=== PATIENT | female | born 1995 | race African-American/Black ===

== ENCOUNTER 2017-03-03 14:32 | Emergency (ER) | payer OTHER ==
[~2017-03-03] VITALS: Ht 162.6 cm; Wt 93.4 kg
[~2017-03-03 14:32] MED LIST: AMOXIL500 MG PO; BACTRIM DS 8001 TAB PO; CIPRO 500MG TA500 MG PO; CITRANATAL HAR1 EACH PO; DICLEGIS DR 101 EACH PO; FIORICET 325 MG1 TAB PO; FLEXERIL10 MG PO; GLYBURIDE5 M1 PO; GOOD SENSE IBU200 MG PO; HUMALOG100 UNIT/2 SC; HYDROCODONE/ACE1 TA1 PO; IBUPROFEN600 M1 PO; KEFLEX500 M1 PO; KEFLEX500 MG PO; LEVEMIR100 UNIT/1 SC; LEVSIN0.125 MG PO; LIDEX0.05 %/15 TOP; METFORMIN HCL500 MG PO; NEURONTIN300 M1 PO; PERCOCET 5-3251 EACH PO; ROBITUSSIN W/CO10 ML PO; TYLENOL TAB 32325 MG PO; VITAMIN B COMPL1 CAP PO; ZITHROMAX Z-PA250 M1 PO; ZOFRAN 4 MG TABL4 MG PO; ZOFRAN4 MG PO
[2017-03-03 14:36] VITALS: BP 124/84
--- NOTE | 2017-03-03 14:42 | ED UPPER/LOWER EXTREMITY COMPL ---
History of Present Illness General Chief Complaint: Lower Extremity Problems Stated Complaint: L FOOT SWELLING Source: patient Exam Limitations: no limitations Vital Signs & Intake/Output Vital Signs & Intake/Output Vital Signs Date Time Temp Pulse Resp B/P B/P Pulse O2 O2 Flow FiO2 Mean Ox Delivery Rate 03/03 1511 97 Room Air Room Air 03/03 1436 98.4 96 16 124/84 98 Room Air Room Air Allergies Coded Allergies: NO KNOWN ALLERGIES (05/03/16) Reconcile Medications Doxylamine/Pyridoxine HCl (Diclegis Dr 10-10 MG Tablet) 10 MG-10 MG TABLET.DR 2 TAB PO QPM PRN NAUSEA Insulin Detemir (Levemir) 100 UNIT/ML VIAL 24 UNITS SC QPM DM (Reported) Insulin Lispro (Humalog) 100 UNIT/ML VIAL 4 UNITS SC TID DM (Reported) Pnv59/Iron,Carb&Fum/FA/Dss/Dha (Citranatal [place] Capsule) 27 MG IRON-1 MG-50 MG-260 MG CAPSULE 1 CAP PO DAILY (Reported) Triage Note: PT TO TRIAGE WITH PAIN AND SWELLING TO FOOT AND ANKLE IN LEFT LEG SINCE YESTERDAY. NO REDNESS NOTED. Triage Nurses Notes Reviewed? yes Onset: Abrupt Duration: day(s): (2), constant, continues in ED Timing: recent history Severity: moderate, severe Pain/Injury Location: Left: Foot. Method of Injury: unknown No Modifying Factors: none : Yes Patient currently breastfeeds: No HPI: 21-year-old female comes into the emergency room for further evaluation of left foot pain and swelling has been going on for the past couple days. Patient is 36 weeks . Patient has a history of type 2 diabetes. Denies any vaginal bleeding leakage of fluid abdominal pain. Denies any trauma. Denies any other associated symptoms. (ANGELLA GRANT) Past History Travel History Traveled to [place] past 21 day No Medical History Any Pertinent Medical History? 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 No (ANGELLA GRANT) Review of Systems Review of Systems Constitutional: Reports: no symptoms. EENTM: Reports: no symptoms. Respiratory: Reports: no symptoms. Cardiovascular: Reports: no symptoms. Gastrointestinal/Abdominal: Reports: no symptoms. Genitourinary: Reports: no symptoms. Musculoskeletal: Reports: see HPI. Skin: Reports: no symptoms. Neurological/Psychological: Reports: no symptoms. Hematologic/Endocrine: Reports: no symptoms. Immunological: Reports: no symptoms. All Other Systems: Reviewed and Negative (ANGELLA GRANT) Physical Exam Physical Exam General Appearance: well developed/nourished Head: atraumatic Eyes: Bilateral: normal appearance. Ears, Nose, Throat: normal ENT inspection, hearing grossly normal Neck: normal inspection Cardiovascular/Respiratory: no respiratory distress Peripheral Pulses: 2+ dorsalis pedis (R), 2+ dorsalis pedis (L) Gastrointestinal: soft, nontender Back: normal inspection Foot Left: swelling, no edema Foot Right: swelling, nor edema Lower Extremity Reflexes: 1+: knee (R), knee (L), ankle (R), ankle (L). Neurologic/Tendon: normal sensation, normal motor functions, normal tendon functions, responds to pain, no evidence tendon injury, no pulse deficit Skin: intact, normal color, warm/dry Lymphatic: no anterior cervical alison (ANGELLA GRANT) Progress Differential Diagnosis: arterial insufficiency, cellulitis, contusion, dislocation, DVT, fracture, gout, septic arthritis, sprain, tendon injury Plan of Care: Orders Procedure Date/time Status Add-on Test (ER Only) 03/03 1814 Active URINE TOTAL PROT/CREAT RATIO 03/03 1620 Complete Add-on Test (ER Only) 03/03 1601 Active DIRECT BILIRUBIN 03/03 1510 Complete URINALYSIS 03/03 1446 Complete COMPREHENSIVE METABOLIC PANEL 03/03 1446 Complete CBC WITHOUT DIFFERENTIAL 03/03 1446 Complete Laboratory Tests 03/03/17 1615: Ur Random Creatinine 77.0, U Random Total Protein 15 H, Protein/Creatinin Ratio 0.1 03/03/17 1615: Urinalysis LIGHT H, Urine Color YEL, Urine Clarity HAZY H, Urine pH 6.0, Ur Specific [place] 1.015, Urine Protein NEG, Urine Ketones TRACE H, Urine Nitrite NEG, Urine Bilirubin SMALL H, Urine Urobilinogen 4.0 H, Ur Leukocyte Esterase TRACE H, Ur Microscopic SEDIMENT EXAMINED, Urine RBC 5-10 H, Ur Epithelial Cells FEW, Urine Bacteria MOD H, Urine Mucus FEW, Urine Hemoglobin NEG, Urine Glucose 250 H 03/03/17 1510: Anion Gap 10, Estimated GFR > 60, BUN/Creatinine Ratio 10.0, Glucose 101 H, Calcium 9.0, Total Bilirubin 3.1 H, Direct Bilirubin 0.9 H, AST 25, ALT 59 H, Alkaline Phosphatase 246 H, Total Protein 6.2 L, Albumin 3.1 L, Globulin 3.1, Albumin/Globulin Ratio 1.0 L, CBC w Diff NO MAN DIFF REQ, RBC 4.32, MCV 77.2 L , MCH 25.5 L, RDW 19.9 H, MPV 11.5 H, Gran % 63.6, Lymphocytes % 25.8, Monocytes % 9.2, Eosinophils % 1.0, Basophils % 0.4, Absolute Granulocytes 4.9, Absolute Lymphocytes 2.0, Absolute Monocytes 0.7 H, Absolute Eosinophils 0.1, Absolute Basophils 0, PUBS MCHC 33.0 Diagnostic Imaging: Viewed by Me: Ultrasound. Discussed w/RAD: Ultrasound. Radiology Impression: SERVICE DATE: 03/03/17 EXAM TYPE: US - US-EXT BILAT VENOUS DOPPLER EXAMINATION: US TRIPLEX OF LOWER EXTREMITIES, BILATERAL CLINICAL INFORMATION: Bilateral lower extremity edema, swelling. COMPARISON: None TECHNIQUE: Color-flow triplex imaging with spectral analysis and compression Doppler were performed on the lower extremities. FINDINGS: Respiratory variation , normal compression and augmented flow are noted throughout the lower extremities. The visualized common femoral vein, superficial femoral vein, profunda femoral vein, popliteal vein and midcalf peroneal and posterior tibial venous segments show no evidence of deep venous thrombosis. There is no Clemens's cyst. IMPRESSION: No evidence of deep venous thrombosis at both lower extremities. DICTATED BY: BERTHA PUENTE MD DATE/TIME DICTATED:03/03/171618 PHOTOGRAPHIC PLATE MAKER:NORAH , EXAM TYPE: US - US-LIMITED ABDOMEN EXAMINATION: US ABDOMEN LIMITED CLINICAL INFORMATION: 36 weeks with elevated bilirubin. COMPARISON: CT of the abdomen and pelvis done on 05/31/2016. TECHNIQUE: Real- time imaging of the right upper quadrant abdominal viscera. This study was done portably and is slightly limited since patient was on heart monitor. FINDINGS: PANCREAS: Nonvisualized due to overlying bowel gas, accordingly not evaluated. LIVER: Mild diffuse heterogeneous abnormal increased echotexture is noted, consistent with mild diffuse liver disease, likely fatty infiltration, without any sonographic detectable superimposed discrete focal abnormality. There is no intrahepatic biliary ductal dilatation present. GALLBLADDER: Gallbladder fold is noted. The gallbladder is physiologically distended without evidence of stones, sludge, polyps, wall thickening or pericholecystic fluid. COMMON BILE DUCT: Normal in caliber measuring 0.4 cm in diameter. RIGHT KIDNEY: Mild fullness of the right renal collecting system is present possibly physiologic given the patient's 36 weeks . No hydronephrosis. No renal calculi or focal parenchymal lesions. The kidney measures 10.9 cm in maximum dimension. FREE FLUID: None. IMPRESSION: 1. No sonographic evidence of any cholelithiasis, acute cholecystitis or biliary obstruction present. 2. Nonspecific mild diffuse heterogeneous abnormal echotexture is noted within the liver, consistent with mild diffuse liver disease, may represent diffuse fatty infiltration. 3. Nonvisualized pancreas. DICTATED BY: BERTHA PUENTE MD DATE/ TIME DICTATED:03/03/171735 (ANGELLA GRANT) Departure Departure Disposition: HOME OR SELF CARE Condition: Stable Clinical Impression Primary Impression: Foot swelling Secondary Impressions: Abdominal pain, Elevated LFTs Referrals: NANCIE DHALIWAL MD (PCP/Family) Additional Instructions: Patient was sent directly over to childbirth center for further evaluation. Departure Forms: Customer Survey General Discharge Information Comments Spoke with Dr. mars is covering for Dr. Atkinson. The plan is we're going to get an ultrasound the gallbladder. Patient is going to stay over at childbirth currently and stay on the monitor for IV hydration. He is not overly concerned other than the slight elevated bilirubin. Plan is for me to call him after the results of the ultrasound come back. 03/03/2017 6:13:51 PM Spoke with [employer] [employer] doctor again. They are going to go over ultrasound reports with patient. She is reporting relief feeling significantly better after IV hydration. She is likely going to be discharged from childbirth center with close follow-up with [facility] [facility] doctor. Patient will need her bilirubin to be reevaluated. This information is going to be communicated to the patient by childbirth center. Case was discussed with Dr. Noriega. [facility] doctor assures me that they will follow up with lab results with patient as well as ultrasounds. (KATIUSKA HARLEY,ANGELLA) PA/AIRCRAFT SALES REPRESENTATIVE Co-Sign Statement Statement: ED Attending supervision documentation- [] I saw and evaluated the patient. I have also reviewed all the pertinent lab results and diagnostic results. I agree with the findings and the plan of care as documented in the PA's/AIRCRAFT SALES REPRESENTATIVE's documentation. [X] I have reviewed the ED Record and agree with the PA's/AIRCRAFT SALES REPRESENTATIVE's documentation. [] Additions or exceptions (if any) to the PAs/AIRCRAFT SALES REPRESENTATIVE's note and plan are summarized below: [] (NAOMY BLANCO,TANNER Peralta)
[2017-03-03 15:44] LABS: ABSOLUTE BASOPHIL COUNT 0 /CUMM (0.0-0.2); ABSOLUTE EOSINOPHIL COUNT 0.1 /CUMM (0.0-0.7); ABSOLUTE GRANULOCYTE CT 4.9 /CUMM (1.4-6.5); ABSOLUTE MONOCYTE COUNT 0.7 /CUMM (0.10-0.60); BASOPHIL % 0.4 % (0.0-2.0); GRANULOCYTE % 63.6 % (42.2-75.2); HEMATOCRIT 33.3 % (37-47); MEAN CORPUSCULAR HGB 25.5 PG (27.0-31.0); MEAN CORPUSCULAR VOLUME 77.2 FL (81.0-99.0); MEAN PLATELET VOLUME 11.5 FL (7.4-10.4); PLATELET COUNT 258 /CUMM (130-400); RBC DISTRIBUTION WIDTH 19.9 % (11.5-14.5); RED BLOOD CELL CT 4.32 /CUMM (4.20-5.40); WHITE BLOOD CELL COUNT 7.8 /CUMM (4.8-10.8)
--- NOTE | 2017-03-03 16:24 | ULTRASOUND REPORT ---
EXAMINATION: US TRIPLEX OF LOWER EXTREMITIES, BILATERAL CLINICAL INFORMATION: Bilateral lower extremity edema, swelling. COMPARISON: None TECHNIQUE: Color-flow triplex imaging with spectral analysis and compression Doppler were performed on the lower extremities. FINDINGS: Respiratory variation, normal compression and augmented flow are noted throughout the lower extremities. The visualized common femoral vein, superficial femoral vein, profunda femoral vein, popliteal vein and midcalf peroneal and posterior tibial venous segments show no evidence of deep venous thrombosis. There is no Clemens's cyst. IMPRESSION: No evidence of deep venous thrombosis at both lower extremities.
--- NOTE | 2017-03-03 18:08 | ULTRASOUND REPORT ---
EXAMINATION: US ABDOMEN LIMITED CLINICAL INFORMATION: 36 weeks with elevated bilirubin. COMPARISON: CT of the abdomen and pelvis done on 05/31/2016. TECHNIQUE: Real-time imaging of the right upper quadrant abdominal viscera. This study was done portably and is slightly limited since patient was on heart monitor. FINDINGS: PANCREAS: Nonvisualized due to overlying bowel gas, accordingly not evaluated. LIVER: Mild diffuse heterogeneous abnormal increased echotexture is noted, consistent with mild diffuse liver disease, likely fatty infiltration, without any sonographic detectable superimposed discrete focal abnormality. There is no intrahepatic biliary ductal dilatation present. GALLBLADDER: Gallbladder fold is noted. The gallbladder is physiologically distended without evidence of stones, sludge, polyps, wall thickening or pericholecystic fluid. COMMON BILE DUCT: Normal in caliber measuring 0.4 cm in diameter. RIGHT KIDNEY: Mild fullness of the right renal collecting system is present possibly physiologic given the patient's 36 weeks . No hydronephrosis. No renal calculi or focal parenchymal lesions. The kidney measures 10.9 cm in maximum dimension. FREE FLUID: None. IMPRESSION: 1. No sonographic evidence of any cholelithiasis, acute cholecystitis or biliary obstruction present. 2. Nonspecific mild diffuse heterogeneous abnormal echotexture is noted within the liver, consistent with mild diffuse liver disease, may represent diffuse fatty infiltration. 3. Nonvisualized pancreas.
== END 2017-03-03 15:32 ==
LOC: ERH 14:32
PROVIDERS: Physician Assistant Medical
DX: O24.113 Pre-existing type 2 diabetes mellitus, in pregnancy, third trimester (principal); M79.89 Other specified soft tissue disorders; R94.5 Abnormal results of liver function studies; R10.9 Unspecified abdominal pain; Z79.4 Long term (current) use of insulin; Z3A.36 36 weeks gestation of pregnancy
CPT/HCPCS: 81001; 82570; 93970; 96360; 96361; 96366; G0463

== ENCOUNTER 2017-03-06 07:34 | Inpatient (IN) | payer OTHER ==
[~2017-03-06] VITALS: Ht 162.6 cm; Wt 94.3 kg
[2017-03-06] MEDS ORDERED: LEVEMIR100 UNIT/1 SQ (08:26)
[2017-03-06] MEDS ORDERED: FERRALET 90 TA1 EACH PO (08:29)
[2017-03-06 08:31] VITALS: BP 128/86
[2017-03-06 08:33] LABS: ABSOLUTE BASOPHIL COUNT 0 /CUMM (0.0-0.2); ABSOLUTE EOSINOPHIL COUNT 0.2 /CUMM (0.0-0.7); ABSOLUTE GRANULOCYTE CT 6.2 /CUMM (1.4-6.5); ABSOLUTE LYMPH COUNT 1.8 /CUMM (1.2-3.4); ABSOLUTE MONOCYTE COUNT 0.7 /CUMM (0.10-0.60); BASOPHIL % 0 % (0.0-2.0); EOSINOPHIL % 1.8 % (0-5); MEAN CORPUSCULAR HGB 25.1 PG (27.0-31.0); MEAN CORPUSCULAR HGB CONC 33.3 G/DL (33.0-37.0); MEAN CORPUSCULAR VOLUME 75.3 FL (81.0-99.0); MEAN PLATELET VOLUME 9.9 FL (7.4-10.4); PLATELET COUNT 223 /CUMM (130-400); RED BLOOD CELL CT 4.12 /CUMM (4.20-5.40); WHITE BLOOD CELL COUNT 8.9 /CUMM (4.8-10.8)
[2017-03-06 08:49] LABS: GRANULOCYTE % 69.6 % (42.2-75.2)
--- NOTE | 2017-03-06 10:44 | Cons- Endocrinology ---
General Information and HPI Consulting Request Date of Consult: 03/06/17 Requested By: Dr. Atkinson Reason for Consult: Management of diabetes during peripartum period Source of Information: patient, old records Exam Limitations: no limitations History of Present Illness: [id number] woman as a known history of diabetes for at least the past 18 months. She was seen by Dr. pérez in the office. Apparently one point she was on metformin and by another mysql database developer but her sugar was not controlled and she was placed on insulin. During she has been taking insulin. Her insulin doses prior to admission were Levemir 30 units in the morning and 50 units at night. In addition she was taking NovoLog before meals using 3 units for every 15 g of carbohydrate. Patient has been noncompliant on her last few visits to see Dr. Pérez or to see our nurse practitioner Lakesha Cabrera and did not respond to calls to come to the office to make sure her diabetes is in good control. The patient is presently on D5 half-normal saline at 1 25 mL per hour. Her sugar was 112. When checked at 10 AM it was 132. Patient's last insulin was Levemir 25 units last night. Allergies/Medications Allergies: Coded Allergies: NO KNOWN ALLERGIES (05/03/16) Home Med List: Insulin Detemir (Levemir) 100 UNIT/ML VIAL 50 UNITS SC QPM DM (Reported) Insulin Detemir (Levemir) 100 UNIT/ML VIAL 30 U SQ QAM DIABETES (Reported) Insulin Lispro (Humalog) 100 UNIT/ML VIAL 3 UNITS SC TID DM (Reported) 3 units for each carb Iron Carb,Gl/FA/B12/C/Docusate (Ferralet 90 Tablet) 90 MG-1 MG-12 MCG-120 MG-50 MG TABLET 1 TAB PO DAILY ANEMIA (Reported) Pnv59/Iron,Carb&Fum/FA/Dss/Dha (Citranatal [place] Capsule) 27 MG IRON-1 MG-50 MG-260 MG CAPSULE 1 CAP PO DAILY (Reported) Review of Systems Review of Systems Constitutional: Denies: chills, fever. Cardiovascular: Denies: chest pain. Respiratory: Denies: cough, short of breath. Musculoskeletal: Denies: joint pain. Skin: Reports: no symptoms. 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 Neck: normal inspection Respiratory: normal breath sounds Cardiovascular: regular rate/rhythm Extremities: normal inspection Labs/Aleksey Results: Laboratory Tests 03/07 03/06 03/06 0705 0928 0815 Chemistry Creatinine Pending Glucose (65 - 99 mg/dL) 104 H Uric Acid Pending Total Bilirubin (0.2 - 1.3 mg/dL) 2.4 H Direct Bilirubin (< 0.4 mg/dL) 0.8 H AST (14 - 36 U/L) Pending 21 ALT (9 - 52 U/L) Pending 49 Alkaline Phosphatase (<127 U/L) 241 H Lactate Dehydrogenase Pending Total Protein (6.3 - 8.2 g/dL) 5.5 L Albumin (3.5 - 5.0 g/dL) 2.7 L Hematology CBC w Diff Pending WBC Pending RBC Pending Hgb Pending Hct Pending MCV Pending MCH Pending RDW Pending Plt Count Pending MPV Pending PUBS MCHC Pending Other Body Source Membrane Rupture NEGATIVE 03/06 03/06 0808 0801 Chemistry Hemoglobin A1c (4.2 - 5.8 %) ND Hematology CBC w Diff NO MAN DIFF REQ WBC (4.8 - 10.8 /CUMM) 8.9 RBC (4.20 - 5.40 /CUMM) 4.12 L Hgb (12.0 - 16.0 G/DL) 10.3 L Hct (37 - 47 %) 31.0 L MCV (81.0 - 99.0 FL) 75.3 L MCH (27.0 - 31.0 PG) 25.1 L RDW (11.5 - 14.5 %) 20.0 H Plt Count (130 - 400 /CUMM) 223 MPV (7.4 - 10.4 FL) 9.9 Gran % (42.2 - 75.2 %) 69.6 Lymphocytes % (20.5 - 51.1 %) 20.5 Monocytes % (1.7 - 9.3 %) 8.1 Eosinophils % (0 - 5 %) 1.8 Basophils % (0.0 - 2.0 %) 0 L Absolute Granulocytes (1.4 - 6.5 /CUMM) 6.2 Absolute Lymphocytes (1.2 - 3.4 /CUMM) 1.8 Absolute Monocytes (0.10 - 0.60 /CUMM) 0.7 H Absolute Eosinophils (0.0 - 0.7 /CUMM) 0.2 Absolute Basophils (0.0 - 0.2 /CUMM) 0 PUBS MCHC (33.0 - 37.0 G/DL) 33.3 Miscellaneous Ref Lab Test Result Cancelled 03/06 0800 Urines Urine Color (YEL,AMB,STR) YEL Urine Clarity (CLEAR) HAZY H Urine pH (5.0 - 8.0) 6.5 Ur Specific [place] (1.001 - 1.035) 1.010 Urine Protein (NEG,<30 MG/DL) NEG Urine Ketones (NEG) NEG Urine Nitrite (NEG) NEG Urine Bilirubin (NEG) NEG@ICTO Urine Urobilinogen (0.1 - 1.0 EU/dl) 4.0 H Ur Leukocyte Esterase (NEG) TRACE H Ur Microscopic SEDIMENT EXAMINED Urine WBC (0 - 2 /HPF) 1-3 H Ur Epithelial Cells (NONE,FEW) MOD H Urine Bacteria (NEG/NONE) MANY H Urine Hemoglobin (NEG) NEG Urine Glucose (N MG/DL) NEG Assessment/Plan Assessment/Plan This patient is going to have labor induced. Her sugar is 132 at the present time. We will begin her on some NovoLog coverage every 4 hours. We will attempt to keep her sugar at least below 140. We will want to keep her sugar in the 90 -125 range. [address] her on sliding scale NovoLog every 4 hours. We will give 3 units of NovoLog now and check her sugar in 2 hours. This will be reviewed. During active labor the insulin requirements usually drop. Consult Acknowledgment - Thank you for your consult request.
--- NOTE | 2017-03-06 13:22 | History & Physical ---
General Information and HPI MD Statement: I have seen and personally examined ROBBIN WASHINGTON and documented this H&P. The patient is a 21 year old female at 36 [] weeks and [0] days gestation who presented with a chief complaint of []. Elevated liver functions. Patient is a known diabetic on insulin was been noncompliant with her visits with the crinkling machine operator MD Dr. elisa Veliz. Patient has missed her last 5 visits. Patient has had a 48-hour bone here [facility] complaining of not feeling well headaches dark urine and she's had elevated liver function she has a negative hepatitis panel her ultrasound has been consistent with fatty liver patient's on insulin needs have been around 50 units at bedtime with a sliding scale. Patient complained of rupture membranes however she had negative and he sure on she denies any contractions headache or edema at this time Source of Information: patient, old records Exam Limitations: no limitations History of Present Illness: 21-year-old 1 para 0 at 36 weeks presents the hospital with elevated liver functions for induction with misoprostol and Pitocin appropriate consent been signed Allergies/Medications Allergies: Coded Allergies: NO KNOWN ALLERGIES (05/03/16) Home Med list Insulin Detemir (Levemir) 100 UNIT/ML VIAL 50 UNITS SC QPM DM (Reported) Insulin Detemir (Levemir) 100 UNIT/ML VIAL 30 U SQ QAM DIABETES (Reported) Insulin Lispro (Humalog) 100 UNIT/ML VIAL 3 UNITS SC TID DM (Reported) 3 units for each carb Iron Carb,Gl/FA/B12/C/Docusate (Ferralet 90 Tablet) 90 MG-1 MG-12 MCG-120 MG-50 MG TABLET 1 TAB PO DAILY ANEMIA (Reported) Pnv59/Iron,Carb&Fum/FA/Dss/Dha (Citranatal [place] Capsule) 27 MG IRON-1 MG-50 MG-260 MG CAPSULE 1 CAP PO DAILY (Reported) 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 History celery stripper History : 1 Para: 0 Last Menstrual Period: 07/22 Past celery stripper History: none Medical History Neurological: NONE EENT: NONE Cardiovascular: NONE Respiratory: NONE Gastrointestinal: GERD Hepatic: NONE Renal: NONE Musculoskeletal: NONE Psychiatric: NONE Endocrine: diabetes Blood Disorders: NONE Cancer(s): NONE 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 Surgical History Pertinent Surgical History: non-contributory Past Family/Social History Psychosocial History Smoking Status: Never Smoked Review of Systems Review of Systems: Negative review of systems Exam & Diagnostic Data Last 24 Hrs of Vital Signs/I&O Vital Signs Date Time Temp Pulse Resp B/P B/P Pulse O2 O2 Flow FiO2 Mean Ox Delivery Rate 03/06 0831 128/86 Intake & Output 03/06 1600 03/06 0800 03/06 0000 Intake Total Output Total Balance Patient 208 lb Weight Obstetric Exam Wgt Gained During : 6 pounds Pelvimetry: Untested Dilation (cm): 2 Effacement (%): 80 Station: 0 Membranes: intact Fluid: unknown Fundal Height (cm): 39 Multiple Gestation? No Contractions: None Patient for Induction? No Valdez Score Valdez Score Response Value Cervix Position: anterior 2 Cervix Consistency: soft 2 Cervix Effacement: >80% 3 Cervix Dilation: 1-2 cm 1 Total 8 Physical Exam: Obese black female HEENT anicteric Lungs clear Abdomen estimated weight 3600 g Labs Blood Type & Rh: O+ Antibody Screen: neg Hct/Hgb & Platelets #1: Hct/Hgb & Platelets #2: Rubella: immune VDRL #1: nr VDRL #2: nr HbsAg: neg HIV #1: neg HIV #2 neg 1 Hr P Group B Strep: neg Initial Ultrasound: nl Anatomy Ultrasound: nl Genetic Testing: neg Assessment/Plan As Ranked By This Provider Problem List: 1. Abdominal pain Core Measures/Miscellaneous Venous Thromboembolism VTE Risk Factors: / VTE Contraindications: No Contraindications VTE Diagnosis: No Beta Gabrielle Is Beta Gabrielle a Home Med? No Antibiotics Is Patient on Antibiotics? No
--- NOTE | 2017-03-06 21:55 | ULTRASOUND REPORT ---
EXAMINATION: LEFT LOWER EXTREMITY DEEP VENOUS ULTRASOUND CLINICAL INFORMATION: Left calf tenderness and swelling COMPARISON: Bilateral lower extremity DVT study 03/03/2017 TECHNIQUE: Duplex Doppler imaging with compression maneuvers were performed of the left lower extremity deep venous system. FINDINGS: The visualized common femoral, femoral and popliteal veins demonstrate normal compressibility and color flow without evidence of venous thrombosis. Visualized portions of the calf veins demonstrate normal color fill-in suggesting patency. There is no evidence of a Clemens's cyst. IMPRESSION: No evidence of deep venous thrombosis involving the left lower extremity.
--- NOTE | 2017-03-07 07:24 | PN- Diabetes ---
Assessment/Plan Assessment: The patient has not yet gone into active labor. The patient is receiving IV fluids in the form of D5 half-normal saline. Review of her blood sugars during the night reveal that they were mostly in the 90s. This morning however her fingerstick sugar fritz to 135. She received 3 units NovoLog according to the sliding scale. Plan: Suggest continue the present IV fluids. Suggest continue also NovoLog coverage every 4 hours. If her blood sugars 150 please call my office. He would like to keep her sugar in the 90-120 range. Subjective Subjective: Feels okay Review of Systems Constitutional: Denies: chills, fever. Cardiovascular: Denies: chest pain. Respiratory: Denies: short of breath. Skin: Reports: no symptoms. Objective Last 24 Hrs of Vital Signs/I&O Vital Signs Date Time Temp Pulse Resp B/P B/P Pulse O2 O2 Flow FiO2 Mean Ox Delivery Rate 03/06 831 128/86 Vital Signs Date Time Temp Pulse Resp B/P B/P Pulse O2 O2 Flow FiO2 Mean Ox Delivery Rate 03/06 831 128/86 Physical Exam General Appearance: alert, awake, anxious Head: normal appearance Neck: normal inspection Cardiovascular: regular rate/rhythm Extremities: normal inspection Current Medications: Current Medications Sig/S[place] Start time Last Medication Dose Route Stop Time Status Admin Dextrose/Sodium 1,000 ML Q8H 03/07 0515 AC 03/07 Chloride IV 0505 Dextrose/Sodium 1,000 ML Q8H 03/06 0915 DC 03/06 Chloride IV 0923 Hydroxyzine HCl 100 MG ONCE ONE 03/06 2245 DC 03/07 PO 03/06 2246 0020 Insulin Aspart 0 AC 03/06 1600 AC SC Insulin Aspart 0 EVERY FOUR HOURS 03/06 1400 AC 03/07 SC 0646 Insulin Aspart 4 UNITS ONCE ONE 03/06 1225 DC 03/06 SC 03/06 1226 1349 Lactated Ringer's 1,000 ML Q8H 03/06 1330 AC 03/06 IV 1454 Misoprostol 25 MCG Q4P PRN 03/06 1045 AC VAG Misoprostol 25 MCG Q4 PRN 03/06 0945 DC 03/06 VAG 0938
[2017-03-07 07:48] LABS: ABSOLUTE BASOPHIL COUNT 0 /CUMM (0.0-0.2); ABSOLUTE EOSINOPHIL COUNT 0.1 /CUMM (0.0-0.7); ABSOLUTE GRANULOCYTE CT 9.4 /CUMM (1.4-6.5); ABSOLUTE LYMPH COUNT 1.6 /CUMM (1.2-3.4); BASOPHIL % 0 % (0.0-2.0); EOSINOPHIL % 1.2 % (0-5); GRANULOCYTE % 77.7 % (42.2-75.2); HEMATOCRIT 31.3 % (37-47); MEAN CORPUSCULAR HGB 25.4 PG (27.0-31.0); MEAN PLATELET VOLUME 10.3 FL (7.4-10.4); PLATELET COUNT 213 /CUMM (130-400); RBC DISTRIBUTION WIDTH 20.2 % (11.5-14.5); RED BLOOD CELL CT 4.07 /CUMM (4.20-5.40); WHITE BLOOD CELL COUNT 12.1 /CUMM (4.8-10.8)
--- NOTE | 2017-03-07 13:22 | Operative Report ---
Operative/Inv Procedure Report Surgery Date: 03/07/17 Name of Procedure: Primary low flap transverse section via Pfannenstiel skin incision Pre-Operative Diagnosis: Term nonreassuring heart tracing Post-Operative Diagnosis: Same Estimated Blood Loss: 500 Surgeon/Store Director: ANIVAL BLANCO,LIBIA Reyes and Geni Boykin DO Anesthesia: block Operative/Procedure Note Note: Procedure note patient was taken the operating room placed supine position after adequate skin testing for spinal anesthesia by pinprick the patient was found to be adequate for surgery the abdomen was prepped and draped so fashion on which point the testing was performed once again on after timeout agreed bilateral through 2 finger breadths of symptoms pubis in midline skin was cut was carried down to rectus fascia which was cut in curvilinear fashion I direction peritoneal cavity was entered high into the abdomen at this point the on Bovie the Laureen was placed lower and incision the visceral peritoneum was dissected anteriorly as well as bladder blade was replaced to protect the bladder in the lower uterine segment uterus is nicked entered with the back knife once was removed from the field the infant the incision was dissected bluntly was delivered over the abdominal wall the cord was doubly clamped cut and infant was handed negative stripper was waiting delivering to aid in resuscitation placenta was delivered manually noted to be intact was wiped clean with 2 wet dry laps insurance free of adherent membranes I intravenous Pitocin and intramyometrial Pitocin was started to aid in uterine contractility which was apparent the uterus was oversewn running locking suture of 0 was indicated interrupted figure -of-eight's of 0 and imbricated with 0 running locking suture at the end the case uterus was returned to abdominal cavity irrigated close amounts warm saline times to found to be hemostatic the peritoneum was reapproximated 0 the fascia was reapproximated to continue sutures #1 skin was reapproximated louie at the end the case counts correct on vaginal bleeding was minimal and the patient was transferred recovery room awake alert counts correct
--- NOTE | 2017-03-08 08:36 | PN- Diabetes ---
Assessment/Plan Assessment: And had a yesterday. She is tolerating clear liquids well. She was on IV fluids during the night in the form of D5 half-normal saline. Her fingerstick blood sugar this morning is 138. The patient feels she will be able to eat. Her blood sugars were good during the night without any insulin. Plan: Suggest that we can discontinue the patient's IV fluids. We can begin low-dose Levemir 5 units twice a day as long as the patient is eating. We will also begin a NovoLog sliding scale for meals adding with sugars above 120. Subjective Subjective: Feels okay Objective Physical Exam General Appearance: alert, awake, comfortable Current Medications: Current Medications Sig/Spencer Start time Last Medication Dose Route Stop Time Status Admin Acetaminophen 1,000 MG ONCE ONE 03/07 1500 DC 03/07 N/A 1 UNIT IV 03/07 1514 1502 Acetaminophen 650 MG Q4P PRN 03/07 1200 AC PO Bisacodyl 10 MG DAILY NEEDED PRN 03/07 1200 AC SD Bisacodyl 5 MG DAILY NEEDED PRN 03/07 1200 AC PO Butorphanol Tartrate 1 MG Q4P PRN 03/07 0815 DC IV Butorphanol Tartrate 1 MG Q4P PRN 03/07 0815 DC IM Cefazolin Sodium 2 GM ONCE ONE 03/07 1130 DC 03/07 N/A 1 UNIT IV 03/07 1159 1212 Citric Acid/Sodium 30 ML .[0NCE] 03/07 1130 DC 03/07 Citrate PO 03/07 1400 1137 Dextrose/Sodium 1,000 ML Q8H 03/07 2115 AC 03/08 Chloride IV 0501 Dextrose/Sodium 1,000 ML Q8H 03/07 0515 DC 03/07 Chloride IV 0505 Diphenhydramine HCl 25 MG Q6P PRN 03/07 1430 AC 03/07 IV 2148 Docusate Sodium 100 MG AT BEDTIME PRN 03/07 1200 AC PO Enoxaparin Sodium 40 MG 0100 03/08 0100 AC 03/08 SC 0054 Fentanyl Citrate 100 MCG .STK-MED ONE 03/07 1200 DC IM 03/07 1201 Hydroxyzine HCl 50 MG AT BEDTIME NEED.. 03/08 0000 AC PO Hydroxyzine HCl 50 MG .STK-MED ONE 03/07 2342 DC PO 03/07 2343 Ibuprofen 800 MG Q6P PRN 03/07 1200 AC PO Insulin Aspart 0 AC 03/06 1600 DC SC Insulin Aspart 0 EVERY FOUR HOURS 03/06 1400 DC 03/07 SC 0646 Ketorolac 30 MG Q6P PRN 03/07 1430 AC 03/08 Tromethamine IV 0615 Ketorolac 30 MG ONCE ONE 03/07 1200 DC Tromethamine IV 03/07 1201 Lactated Ringer's 1,000 ML Q6H 03/07 1200 DC IV Lactated Ringer's 1,000 ML Q8H 03/06 1330 DC 03/06 IV 1454 Magnesium Hydroxide 30 ML DAILY NEEDED PRN 03/07 1200 AC PO Metoclopramide HCl 10 MG Q6P PRN 03/07 1430 AC IV Midazolam HCl 5 MG .STK-MED ONE 03/07 1200 DC IM 03/07 1201 Misoprostol 25 MCG Q4P PRN 03/06 1045 DC VAG Morphine Sulfate 10 MG .STK-MED ONE 03/07 1200 DC IV 03/07 1201 Naloxone HCl 0.2 MG DAILY NEEDED PRN 03/07 1430 AC IV Oxycodone/ 1 TAB Q4P PRN 03/07 1200 AC Acetaminophen PO Oxycodone/ 2 TAB Q4P PRN 03/07 1200 AC Acetaminophen PO Oxytocin 20 UNITS Q8H 03/07 1200 DC 03/07 Lactated Ringer's 1,000 ML IV 03/07 1959 1337 Oxytocin 10 UNITS ONCE ONE 03/07 1200 DC 03/07 IM 03/07 1201 1214 Oxytocin 30 UNITS PER PROTOCL 03/07 0830 DC 03/07 Lactated Ringer's 500 ML IV 0825 Senna 187 MG AT BEDTIME NEED.. 03/07 1200 AC PO
--- NOTE | 2017-03-08 08:54 | Surgical Discharge Summary ---
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 Lithuanian Review of Systems: NEG 13 PT [facility] Hospital Course Course Attending Physician: LIBIA FLORIAN MD Primary Care Physician: ISRA BLANCO,[facility] Course: ADMITTED FOR INDUCTION WITH MISO AND PITOCIN WITH NON RASSURING TRACING . PT HAD GDM AND ACUTE FATTY LIVER DOUMENTED WITH LABS AND US. Allergies: Coded Allergies: NO KNOWN ALLERGIES (05/03/16) Disposition Summary Disposition Principal Diagnosis: S/P C/S Additional Diagnosis: GDM Discharge Disposition: other general hospital Discharge Instructions General Discharge Information Code Status: Full Code Patient's Diet: ADA2 Patient's Activity: AD LORI Follow-Up Instructions/Appts: MY OFFICE 2 WEEKS ONE WEEK PPRV TO REMOVE SHIVAM
[2017-03-08] MEDS ORDERED: IBUPROFEN800 M1 PO (08:56)
[2017-03-08] MEDS ORDERED: PERCOCET 5-3251 EACH PO (08:56)
[2017-03-08 10:30] LABS: ABSOLUTE BASOPHIL COUNT 0 /CUMM (0.0-0.2); ABSOLUTE EOSINOPHIL COUNT 0.1 /CUMM (0.0-0.7); ABSOLUTE GRANULOCYTE CT 8.4 /CUMM (1.4-6.5); ABSOLUTE LYMPH COUNT 2.1 /CUMM (1.2-3.4); ABSOLUTE MONOCYTE COUNT 0.8 /CUMM (0.10-0.60); BASOPHIL % 0.2 % (0.0-2.0); EOSINOPHIL % 0.5 % (0-5); GRANULOCYTE % 73.8 % (42.2-75.2); MEAN CORPUSCULAR HGB 25.4 PG (27.0-31.0); MEAN CORPUSCULAR HGB CONC 33.3 G/DL (33.0-37.0); MEAN CORPUSCULAR VOLUME 76.2 FL (81.0-99.0); MEAN PLATELET VOLUME 9.8 FL (7.4-10.4); PLATELET COUNT 193 /CUMM (130-400); RBC DISTRIBUTION WIDTH 19.4 % (11.5-14.5); RED BLOOD CELL CT 3.31 /CUMM (4.20-5.40); WHITE BLOOD CELL COUNT 11.3 /CUMM (4.8-10.8)
[2017-03-08 10:31] LABS: HEMATOCRIT 25.2 % (37-47)
== END 2017-03-08 14:11 | disposition short-term general hospital (02) | DRG 540 ==
LOC: GNO 07:34
PROVIDERS: ADMIT Specialist
PROC: 3E033VJ Introduction of Other Hormone into Peripheral Vein, Percutaneous Approach (ICD-10-PCS; 2017-03-06)
PROC: 3E0P7GC Introduction of Other Therapeutic Substance into Female Reproductive, Via Natural or Artificial Opening (ICD-10-PCS; 2017-03-06)
PROC: 10D00Z1 Extraction of Products of Conception, Low, Open Approach (ICD-10-PCS; principal; 2017-03-07)
DX: O76 Abnormality in fetal heart rate and rhythm complicating labor and delivery (principal); O24.12 Pre-existing type 2 diabetes mellitus, in childbirth; E11.9 Type 2 diabetes mellitus without complications; Z3A.36 36 weeks gestation of pregnancy; Z37.0 Single live birth; Z79.4 Long term (current) use of insulin; K76.0 Fatty (change of) liver, not elsewhere classified; O99.89 Other specified diseases and conditions complicating pregnancy, childbirth and the puerperium
CPT/HCPCS: GNOP; 36415; 81001; 84112; 87086; 88307; G0463; J0131; J0690; J1200; J1650; J1815; J1885; J7042; J7120

== ENCOUNTER 2017-10-09 07:58 | Emergency (ER) | payer OTHER ==
[~2017-10-09] VITALS: Ht 162.6 cm; Wt 93.4 kg
[~2017-10-09 07:58] MED LIST changes: +FERRALET 90 TA1 EACH PO; +IBUPROFEN800 M1 PO; +LEVEMIR100 UNIT/1 SQ; +PRILOSEC OTC20 M1 PO
[2017-10-09 08:06] VITALS: BP 110/75
[2017-10-09] MEDS ORDERED: HYDROXYZINE HCL25 M2 PO (08:16)
--- NOTE | 2017-10-09 08:17 | ED SKIN/ALLERGY COMPLAINT ---
History of Present Illness General Chief Complaint: Skin Rash/ Abcess Stated Complaint: PER PT "ITCHY ALL OVER BODY" Source: patient, old records Exam Limitations: no limitations Vital Signs & Intake/Output Vital Signs & Intake/Output Vital Signs Date Time Temp Pulse Resp B/P B/P Pulse O2 O2 Flow FiO2 Mean Ox Delivery Rate 10/09 0810 99 Room Air 10/09 0806 97.6 84 20 110/75 98 Room Air Allergies Coded Allergies: NO KNOWN ALLERGIES (05/03/16) Reconcile Medications Hydroxyzine Hydrochloride (Atarax) 25 MG TAB 1 TAB PO Q6P PRN ITCHING Omeprazole Magnesium (Prilosec Otc) 20 MG TABLET.DR 1 TAB PO DAILY STOMACH PAIN Triage Note: PT C/O FEELING ITCHY ALL OVER SINCE SATURDAY. PT DENIES RASH OR DRY SKIN. STATES SHE USED BENEDRYL WITHOUT RELIEF. STATES SHE IS VERY THIRSTY ALSO, HAS HX OF DIABETES. FS 359 IN TRIAGE Triage Nurses Notes Reviewed? yes : No Patient currently breastfeeds: No HPI: Patient presents with diffuse itching that started 3 days ago. Patient states that her blood sugar has been running high so her doctor put her back on the insulin. Patient is not sure if they're itching started before starting the insulin however she has been on insulin the past and did not have any problems with that. Patient has not noticed any rash. There is no difficulty breathing or swallowing. Patient states that nobody else at home has any similar symptoms. Patient states that she noticed that she is being more and drinking more however that is getting better after restarting the insulin. Past History Travel History Traveled to [place] past 21 day No Medical History Any Pertinent Medical History? see below for history Neurological: NONE EENT: NONE Cardiovascular: NONE Respiratory: NONE Gastrointestinal: GERD Hepatic: NONE Renal: NONE Musculoskeletal: NONE Psychiatric: NONE Endocrine: diabetes Blood Disorders: NONE Cancer(s): NONE OFFICE SUPPORT/Reproductive: NONE Surgical History Surgical History: non-contributory Psychosocial History What is your primary language Turkish Tobacco Use: Never used ETOH Use: denies use Illicit Drug Use: denies illicit drug use Family History Hx Contributory? No Review of Systems Review of Systems Constitutional: Reports: no symptoms. EENTM: Reports: no symptoms. Respiratory: Reports: no symptoms. Cardiovascular: Reports: no symptoms. Skin: Reports: see HPI. Immunologic/Allergic: Reports: no symptoms. Physical Exam Physical Exam General Appearance: well developed/nourished, alert, awake, mild distress Head: atraumatic Eyes: Bilateral: PERRL, EOMI. Ears, Nose, Throat: normal pharynx, normal ENT inspection, hearing grossly normal Neck: normal inspection, supple, full range of motion, NO STRIDOR Respiratory: normal breath sounds, chest non-tender, no respiratory distress, lungs clear Cardiovascular: regular rate/rhythm, normal peripheral pulses Extremities: normal inspection, normal capillary refill, normal range of motion, no edema Neurologic/Psych: no motor/sensory deficits, awake, alert, oriented x 3, normal gait, normal mood/affect Skin: intact, normal color, warm/dry Progress Differential Diagnosis: allergic reaction, contact dermatitis Plan of Care: USE MOISTURIZERS Departure Departure Disposition: HOME OR SELF CARE Condition: Stable Clinical Impression Primary Impression: Dry skin Additional Instructions: DRINK PLENTY OF FLUIDS MONITOR YOUR BLOOD SUGAR CLOSELY USE MOITURIZING CREAM TAKE ATARAX NEEDED FOR THE ITCHING RETURN IF SYMPTOMS WORSEN OR FOR ANY CONCERNS MAKE SURE THE ITCHING DOES NOT WORSEN AFTER TAKING YOUR INSULIN. YOU MAY BE HAVING AN ALLERGIC REACTION TO THE INSULIN. Departure Forms: Customer Survey General Discharge Information Prescriptions: Current Visit Scripts Hydroxyzine Hydrochloride (Atarax) 1 TAB PO Q6P PRN ITCHING #30 TAB
[2017-10-10] MEDS ORDERED: CYCLOBENZAPRINE10 M1 PO (09:41)
[2017-10-10] MEDS ORDERED: IBUPROFEN600 M1 PO (09:41)
== END 2017-10-09 08:26 ==
LOC: ERH 07:58
DX: L98.8 Other specified disorders of the skin and subcutaneous tissue (principal)

== ENCOUNTER 2017-11-06 08:54 | Emergency (ER) | payer OTHER ==
[~2017-11-06] VITALS: Ht 162.6 cm; Wt 90.7 kg
[~2017-11-06 08:54] MED LIST changes: +CYCLOBENZAPRINE10 M1 PO; +HYDROXYZINE HCL25 M2 PO
[2017-11-06 09:38] LABS: ABSOLUTE BASOPHIL COUNT 0.1 /CUMM (0.0-0.2); ABSOLUTE EOSINOPHIL COUNT 0.2 /CUMM (0.0-0.7); ABSOLUTE GRANULOCYTE CT 7.3 /CUMM (1.4-6.5); ABSOLUTE LYMPH COUNT 2.8 /CUMM (1.2-3.4); ABSOLUTE MONOCYTE COUNT 0.5 /CUMM (0.10-0.60); BASOPHIL % 0.8 % (0.0-2.0); EOSINOPHIL % 2.1 % (0-5); GRANULOCYTE % 66.7 % (42.2-75.2); HEMATOCRIT 37.5 % (37-47); MEAN CORPUSCULAR HGB 24.6 PG (27.0-31.0); MEAN CORPUSCULAR VOLUME 74.8 FL (81.0-99.0); MEAN PLATELET VOLUME 10.1 FL (7.4-10.4); PLATELET COUNT 365 /CUMM (130-400); RBC DISTRIBUTION WIDTH 20.4 % (11.5-14.5); RED BLOOD CELL CT 5.02 /CUMM (4.20-5.40)
--- NOTE | 2017-11-06 09:39 | ED GENERAL ADULT ---
History of Present Illness General Chief Complaint: General Adult Stated Complaint: HIGH BLOOD SUGAR Source: patient Exam Limitations: no limitations Vital Signs & Intake/Output Vital Signs & Intake/Output Vital Signs Date Time Temp Pulse Resp B/P B/P Pulse O2 O2 Flow FiO2 Mean Ox Delivery Rate 11/06 1147 65 20 117/77 100 Room Air 11/06 0917 99 Room Air 11/06 0902 97.1 82 15 119/83 98 Room Air Room Air Allergies Coded Allergies: No Known Allergies (11/06/17) Reconcile Medications Cyclobenzaprine HCl 10 MG TABLET 1 TAB PO Q8P PAIN OR SPASM Hydroxyzine Hydrochloride (Atarax) 25 MG TAB 1 TAB PO Q6P PRN ITCHING Ibuprofen 600 MG TABLET 1 TAB PO TID PRN PAIN with food Triage Note: PT BIBA FROM WORK FOR HIGH BLOOD SUGAR (>600 PER EMS). PT STARTED VOMITING THIS MORNING AND NOW REPORTS SHARP RUQ ABD PAIN THAT STARTED JUST PRIOR TO ARRIVAL. FINGER STICK IN TRIAGE 432. PT SLIGHTLY LETHARGIC IN TRIAGE, ABLE TO ANSWER QUESTIONS APPROPRIATE. IDDM AND HAS BEEN COMPLIANT WITH INSULIN AT HOME. Triage Nurses Notes Reviewed? yes Onset: Abrupt Duration: day(s): (2), changing over time, continues in ED Timing: recent history Injury Environment: work Severity: moderate, severe Severity Numbers: 8 No Modifying Factors: none Associated Symptoms: chest pain LMP (ages 10-50): unknown : No Patient currently breastfeeds: No HPI: 22-year-old female past medical history insulin-dependent diabetes presents for evaluation of elevated blood sugar, abdominal pain and chest pain. Patient states that symptoms started yesterday and has been getting worse. She states that today she went to work and was feeling very lethargic and weak she checked her blood sugar and was elevated to greater than 500. She states that she took 8 units of Levemir and 3 of Humalog at 5:30 this morning. She denies any fever. She does report associated right upper quadrant abdominal pain that radiates into the right side of her chest. The pain has been present in the past associated with gallstones according the patient. No nausea vomiting diarrhea. No urinary symptoms or vaginal discharge. She has been eating and drinking. She was supposed to have an appointment with her sewing machine operator plastic zipper today and will not be able to go since she is here. No shortness of breath hemoptysis lower extremity edema recent surgery recent trauma. (Black PA,Jaycob) Past History Travel History Traveled to [place] past 21 day No Medical History Any Pertinent Medical History? 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 No (Jaycob Bhardwaj) Review of Systems Review of Systems Constitutional: Reports: malaise, weakness. EENTM: Reports: no symptoms. Respiratory: Reports: no symptoms. Cardiovascular: Reports: see HPI, chest pain. GI: Reports: see HPI, abdominal pain. Genitourinary: Reports: no symptoms. Musculoskeletal: Reports: no symptoms. Skin: Reports: no symptoms. Neurological/Psychological: Reports: weakness. Hematologic/Endocrine: Reports: no symptoms. Immunologic/Allergic: Reports: no symptoms. All Other Systems: Reviewed and Negative (Jaycob Bhardwaj) Physical Exam Physical Exam General Appearance: well developed/nourished, no apparent distress, alert, awake Head: atraumatic, normal appearance Eyes: Bilateral: normal appearance, PERRL, EOMI. Ears, Nose, Throat: normal pharynx, normal ENT inspection, hearing grossly normal Neck: normal inspection, supple, full range of motion Respiratory: normal breath sounds, no respiratory distress, the right lateral ribs and right chest wall tenderness palpation Cardiovascular: regular rate/rhythm, normal peripheral pulses Peripheral Pulses: 2+ radial (R), 2+ radial (L) Gastrointestinal: normal bowel sounds, soft, no organomegaly, tenderness (right upper quadrant rt flank) Back: normal inspection, normal range of motion, no vertebral tenderness, no CVA tenderness Extremities: normal inspection, normal range of motion, no edema Neurologic/Psych: no motor/sensory deficits, awake, alert, oriented x 3, normal gait, normal mood/affect Skin: intact, normal color, warm/dry Lymphatic: no anterior cervical alison Core Measures ACS in differential dx? No CVA/TIA Diagnosis: No Sepsis Present: No Sepsis Focused Exam Completed? No (Jaycob Bhardwaj) Progress Differential Diagnoses I considered the following diagnoses in my evaluation of the patient: [DKA, HHS, cholecystitis, cholelithiasis, PE, pneumonia, muscle strain, hyperglycemia, UTI, sepsis, electrolyte abnormality] Plan of Care: Orders Procedure Date/time Status Consistent Carbohydrate 1 11/06 D Active Add-on Test (ER Only) 11/06 1100 Active EKG 11/06 1058 Active Add-on Test (ER Only) 11/06 1025 Active Add-on Test (ER Only) 11/06 1011 Active TROPONIN LEVEL 11/06 929 Complete LIPASE 11/06 929 Complete D-DIMER 11/06 929 Complete MIXED VENOUS BLOOD GAS (GEN) 11/06 917 Active URINE 11/06 917 Complete URINALYSIS 11/06 916 Complete SERUM OSMOLALITY 11/06 916 Complete COMPREHENSIVE METABOLIC PANEL 11/06 916 Complete CBC WITHOUT DIFFERENTIAL 11/06 916 Complete ACETONE 11/06 916 Complete Current Medications Sig/Spencer Start time Last Medication Dose Stop Time Status Admin Insulin Human Regular 4 UNITS Q6 11/06 1319 UNVr (NovoLIN R) Laboratory Tests 11/06/17 1003: Urine Test NEGATIVE 11/06/17 1003: Urine Color YEL, Urine Clarity CLEAR, Urine pH 6.0, Ur Specific [place] 1.010, Urine Protein NEG, Urine Ketones NEG, Urine Nitrite NEG, Urine Bilirubin NEG, Urine Urobilinogen 0.2, Ur Leukocyte Esterase NEG, Ur Microscopic EXAM NOT REQUIRED, Urine Hemoglobin NEG, Urine Glucose >=1000 H 11/06/17 0930: Anion Gap 14, Estimated GFR > 60, BUN/Creatinine Ratio 18.0, Glucose 458 H, Serum Osmolality 295, Calcium 9.2, Total Bilirubin 2.0 H, AST 12 L, ALT 23, Alkaline Phosphatase 96, Troponin I < 0.01, Total Protein 6.9, Albumin 4.3, Globulin 2.6, Albumin/Globulin Ratio 1.7, Lipase 74, D-Dimer High Sensitivty < 200, CBC w Diff MAN DIFF ORDERED, RBC 5.02, MCV 74.8 L, MCH 24.6 L, MCHC 33.0, RDW 20.4 H, MPV 10.1, Gran % 66.7, Lymphocytes % 25.9, Monocytes % 4.5, Eosinophils % 2.1, Basophils % 0.8, Absolute Granulocytes 7.3 H, Segmented Neutrophils 65, Absolute Lymphocytes 2.8, Lymphocytes 28, Monocytes 5, Absolute Monocytes 0.5, Eosinophils 2, Absolute Eosinophils 0.2, Absolute Basophils 0.1, Nucleated RBCs 2 H, Platelet Estimate VERIFIED BY SMEAR, Polychromasia 1+, Poikilocytosis 1+, Anisocytosis 2+, Microcytic Cells 1+, Target Cells FEW, Acetone Level NEGATIVE Patient seen and evaluated. She is reporting right-sided chest and upper abdominal pain. Her sugar is 458 negative acetone negative anion gap. She also has negative troponin and a stable EKG and a negative d-dimer. Patient was given 2 L of normal saline Tylenol and Zofran. She is feeling better. CT scan and chest x-ray are negative. Patient is feeling better and is requesting food. She is able tolerate food and fluids. Her repeat sugar was 311. Patient was given a diabetic diet along with 4 units of subcutaneous regular insulin. Spoke with patient's sewing machine operator plastic zipper Sami Lima MD he recommends patient can be discharged with instructions to continue checking sugar taking insulin as directed and follow up as an outpatient as soon as possible. Advised patient to rest and plenty of fluids continue checking sugar and taking insulin as directed. Make a follow-up with sewing machine operator plastic zipper. Tylenol as needed for pain. Discussed return precautions in detail patient is nontoxic-appearing agrees the plan. Diagnostic Imaging: Viewed by Me: Radiology Read, CT Scan. Discussed w/RAD: Radiology Read, CT Scan. Radiology Impression: PATIENT: ROBBIN WASHINGTON PRESENT AGE: 22 PATIENT ACCOUNT NO: [id number] : 96 LOCATION: [facility] ORDERING PHYSICIAN: Jaycob HARLEY SERVICE DATE: 11/06/17 EXAM TYPE: RAD - XRY- CHEST XRAY, TWO VIEWS EXAMINATION: XR CHEST CLINICAL INFORMATION: Chest pain. Shortness of breath. Question pneumonia. COMPARISON: Chest radiograph 2014. TECHNIQUE: 2 views of the chest were obtained. FINDINGS: Lungs are well- expanded. No focal consolidative disease, pleural effusion, or pneumothorax. The cardiac silhouette and upper mediastinal contours are normal. No acute osseous finding. IMPRESSION: Unremarkable chest radiograph. No consolidative disease or effusion. DICTATED BY: Miya BLANCO,Josef Lezama DATE/TIME DICTATED:11/06/171201 PLASTERING SUPERVISOR:NORAH DATE/TIME TRANSCRIBED:11/06/171201 CONFIDENTIAL, DO NOT COPY WITHOUT APPROPRIATE AUTHORIZATION., PATIENT: ROBBIN WASHINGTON PRESENT AGE: 22 PATIENT ACCOUNT NO: [id number] : 96 LOCATION: [facility] ORDERING PHYSICIAN: Jyacob HARLEY SERVICE DATE: 11/06/17 EXAM TYPE: CAT - CT ABD & PELVIS W IV CONTRAST EXAMINATION: CT ABDOMEN AND PELVIS WITH CONTRAST CLINICAL INFORMATION: Right upper quadrant abdominal pain radiating into the right flank. COMPARISON: CT scan of the abdomen and pelvis . TECHNIQUE: Multidetector volumetric imaging was performed of the abdomen and pelvis following IV administration of 95 mL of Optiray 320 intravenous contrast. Sagittal and coronal reformatted images were obtained on the technologist's workstation. DLP: 694.45 mGy-cm FINDINGS: LUNG BASES: Lung bases are clear. There is no pleural or pericardial effusion. LIVER, GALLBLADDER , AND BILIARY TREE: Liver attenuation is homogeneous and there is no evidence of a discrete hepatic parenchymal mass. The gallbladder is unremarkable with no evidence of radiopaque gallstones, gallbladder wall thickening, or obvious pericholecystic inflammatory changes. PANCREAS: Unremarkable. SPLEEN: The spleen is enlarged with a maximal length of 14.2 cm. ADRENAL GLANDS: Unremarkable. KIDNEYS AND URETERS: Kidneys demonstrate symmetric corticomedullary enhancement. There is no discrete renal parenchymal mass. No abnormal perinephric inflammation or collection. There is no abnormal mass or calcification along the expected course of the right or left ureters. BLADDER: Unremarkable. GASTROINTESTINAL TRACT: The stomach and small bowel is normal. No evidence of small bowel obstruction. A few diverticula are visualized within the sigmoid colon. The remainder of the colon is unremarkable. The appendix is not definitively visualized however there are no abnormal inflammatory changes adjacent cecum to suggest acute appendicitis. ABDOMINAL WALL: No significant hernia is appreciated. LYMPH NODES: There are no pathologically enlarged mesenteric or retroperitoneal lymph nodes. VASCULAR: Unremarkable. PELVIC VISCERA: There is an anteverted uterus. No worrisome adnexal mass. OSSEOUS STRUCTURES: Unremarkable. IMPRESSION: Unremarkable examination. There is no abnormal finding to provide an explanation for the patient's right upper quadrant abdominal pain. DICTATED BY: Miya BLANCO,Josef Lezama DATE/TIME DICTATED: 11/06/171210 PLASTERING SUPERVISOR:NORAH DATE/TIME TRANSCRIBED:11/06/171210 Initial ED EKG: normal sinus rhythm (Jaycob Bhardwaj) Departure Departure Disposition: HOME OR SELF CARE Condition: Stable Clinical Impression Primary Impression: Abdominal pain Qualifiers: Abdominal location: right upper quadrant Qualified Code: R10.11 - Right upper quadrant pain Secondary Impressions: Hyperglycemia Referrals: Sami Lima MD Patient Has No Primary Care Dr (PCP/Family) Additional Instructions: Appointment with YOUR sewing machine operator plastic zipper as soon as possible. Continue to check YOUR sugar at home and administer the appropriate amount of Humalog AFTER EATING. USE TYLENOL [id number] EVERY 6 HORUS NEEDED FOR PAIN. REST AND DRINK PLENTLY OF FLUIDS. AVOID SUGARY SNAKCS AND DRINKS. MONIOTR YOUR SYMPTOMS RETURN WITH ANY CONCERNS. Departure Forms: Customer Survey General Discharge Information (Jaycob Bhardwaj) PA/WINDOWS AND DOORS INSTALLER Co-Sign Statement Statement: ED Attending supervision documentation- [] I saw and evaluated the patient. I have also reviewed all the pertinent lab results and diagnostic results. I agree with the findings and the plan of care as documented in the PA's/WINDOWS AND DOORS INSTALLER's documentation. [X] I have reviewed the ED Record and agree with the PA's/WINDOWS AND DOORS INSTALLER's documentation. [] Additions or exceptions (if any) to the PAs/WINDOWS AND DOORS INSTALLER's note and plan are summarized below: [] (Pedro Luis Mayberry DO) Critical Care Note Critical Care Note Critical Care Time: non-applicable (Jaycob Bhardwaj)
--- NOTE | 2017-11-06 12:06 | RADIOLOGY REPORT ---
EXAMINATION: XR CHEST CLINICAL INFORMATION: Chest pain. Shortness of breath. Question pneumonia. COMPARISON: Chest radiograph 08/24/2015. TECHNIQUE: 2 views of the chest were obtained. FINDINGS: Lungs are well-expanded. No focal consolidative disease, pleural effusion, or pneumothorax. The cardiac silhouette and upper mediastinal contours are normal. No acute osseous finding. IMPRESSION: Unremarkable chest radiograph. No consolidative disease or effusion.
--- NOTE | 2017-11-06 12:18 | CT SCAN REPORT ---
EXAMINATION: CT ABDOMEN AND PELVIS WITH CONTRAST CLINICAL INFORMATION: Right upper quadrant abdominal pain radiating into the right flank. COMPARISON: CT scan of the abdomen and pelvis 10/10/2017. TECHNIQUE: Multidetector volumetric imaging was performed of the abdomen and pelvis following IV administration of 95 mL of Optiray 320 intravenous contrast. Sagittal and coronal reformatted images were obtained on the technologist's workstation. DLP: 694.45 mGy-cm FINDINGS: LUNG BASES: Lung bases are clear. There is no pleural or pericardial effusion. LIVER, GALLBLADDER, AND BILIARY TREE: Liver attenuation is homogeneous and there is no evidence of a discrete hepatic parenchymal mass. The gallbladder is unremarkable with no evidence of radiopaque gallstones, gallbladder wall thickening, or obvious pericholecystic inflammatory changes. PANCREAS: Unremarkable. SPLEEN: The spleen is enlarged with a maximal length of 14.2 cm. ADRENAL GLANDS: Unremarkable. KIDNEYS AND URETERS: Kidneys demonstrate symmetric corticomedullary enhancement. There is no discrete renal parenchymal mass. No abnormal perinephric inflammation or collection. There is no abnormal mass or calcification along the expected course of the right or left ureters. BLADDER: Unremarkable. GASTROINTESTINAL TRACT: The stomach and small bowel is normal. No evidence of small bowel obstruction. A few diverticula are visualized within the sigmoid colon. The remainder of the colon is unremarkable. The appendix is not definitively visualized however there are no abnormal inflammatory changes adjacent cecum to suggest acute appendicitis. ABDOMINAL WALL: No significant hernia is appreciated. LYMPH NODES: There are no pathologically enlarged mesenteric or retroperitoneal lymph nodes. VASCULAR: Unremarkable. PELVIC VISCERA: There is an anteverted uterus. No worrisome adnexal mass. OSSEOUS STRUCTURES: Unremarkable. IMPRESSION: Unremarkable examination. There is no abnormal finding to provide an explanation for the patient's right upper quadrant abdominal pain.
[2017-11-06 14:15] VITALS: BP 118/76
[2017-11-14] MEDS ORDERED: IBUPROFEN600 M1 PO (04:14)
== END 2017-11-06 14:17 ==
LOC: ERH 08:54
PROVIDERS: Physician Assistant Medical
DX: R10.11 Right upper quadrant pain (principal); E10.65 Type 1 diabetes mellitus with hyperglycemia; R07.89 Other chest pain
CPT/HCPCS: 71046; 74177; 81003; 81025; 93005; 93010; 96372; 96374; J0131; J2405

== ENCOUNTER 2018-04-08 14:05 | Emergency (ER) | payer OTHER ==
[~2018-04-08] VITALS: Ht 162.6 cm; Wt 89.4 kg
[~2018-04-08 14:05] MED LIST changes: +NOVOLOG FL100 UNIT/1
[2018-04-08 14:09] VITALS: BP 122/81
[2018-04-08 14:56] LABS: ABSOLUTE BASOPHIL COUNT 0.2 /CUMM (0.0-0.2); ABSOLUTE EOSINOPHIL COUNT 0.2 /CUMM (0.0-0.7); ABSOLUTE GRANULOCYTE CT 6.4 /CUMM (1.4-6.5); ABSOLUTE MONOCYTE COUNT 0.5 /CUMM (0.10-0.60); BASOPHIL % 1.7 % (0.0-2.0); EOSINOPHIL % 2.4 % (0-5); GRANULOCYTE % 61.7 % (42.2-75.2); HEMATOCRIT 37.2 % (37-47); MEAN CORPUSCULAR HGB 25.5 PG (27.0-31.0); MEAN CORPUSCULAR HGB CONC 33.2 G/DL (33.0-37.0); MEAN CORPUSCULAR VOLUME 76.6 FL (81.0-99.0); PLATELET COUNT 352 /CUMM (130-400); RBC DISTRIBUTION WIDTH 19.7 % (11.5-14.5); RED BLOOD CELL CT 4.86 /CUMM (4.20-5.40); WHITE BLOOD CELL COUNT 10.3 /CUMM (4.8-10.8)
--- NOTE | 2018-04-08 16:25 | ULTRASOUND REPORT ---
EXAMINATION: US TRANSVAGINAL CLINICAL INFORMATION: Back pain/pelvic pain. Vaginal bleeding. COMPARISON: 03/26/2018 TECHNIQUE: Transabdominal and endovaginal sonographic evaluation of the pelvis. Endovaginal examination performed for improved visualization of the gestational sac. Doppler evaluation with spectral analysis performed. FINDINGS: Anteverted uterus. Intrauterine gestational sac is again noted. A yolk sac is present. There is a crown-rump length measuring 0.76 cm yielding a gestational age by ultrasound of 6 weeks 5 days. There is a normal heart rate at 129 bpm. Adjacent to the gestational sac, there is a subchorionic hemorrhage measuring 0.8 x 0.5 x 0.6 cm. The right ovary measures 3.5 x 2.4 x 1.6 cm. Normal arterial and venous spectral waveforms are present. No adnexal mass. The left ovary measures 3.3 x 2.8 x 2.3 cm. Corpus luteal cyst present measuring 2.5 x 2.2 x 1.8 cm. Normal arterial and venous spectral waveforms are present. No free fluid. IMPRESSION: Single live intrauterine with a gestational age by ultrasound of 6 weeks 5 days. Small subchorionic hemorrhage adjacent to the gestational sac.
--- NOTE | 2018-04-08 16:35 | ED GI/GU/ABDOMINAL COMPLAINT ---
History of Present Illness General Chief Complaint: General Adult Stated Complaint: VAGINAL BLEEDING +7WKS PREG Source: patient Exam Limitations: no limitations Vital Signs & Intake/Output Vital Signs & Intake/Output Vital Signs Date Time Temp Pulse Resp B/P B/P Pulse O2 O2 Flow FiO2 Mean Ox Delivery Rate 04/08 1637 Room Air 04/08 1409 98.1 94 18 122/81 97 Room Air Room Air Allergies Coded Allergies: metformin (Intermediate, STOMACH PAINS 04/08/18) Reconcile Medications Cyclobenzaprine HCl 10 MG TABLET 1 TAB PO Q8P PAIN OR SPASM Hydroxyzine Hydrochloride (Atarax) 25 MG TAB 1 TAB PO Q6P PRN ITCHING Ibuprofen 600 MG TABLET 1 TAB PO TID PRN PAIN with food Ibuprofen 600 MG TABLET 1 TAB PO Q6PRN PRN pain with food Insulin Aspart, Recombinant (Novolog Flexpen) 100 UNIT/ML INSULN.PEN DIABETES ( Reported) Pnv59/Iron,Carb&Fum/FA/Dss/Dha (Citranatal Burd[place] Capsule) 27 MG IRON-1 MG-50 MG-260 MG CAPSULE 1 CAP PO DAILY VITAMIN (Reported) Triage Note: PT TO ED WITH C/O "I HAD SOME LIGHT VAGINAL BLEEDING LAST NIGHT, WENT TO WORK TODAY AND IT WAS HEAVIER 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 Triage Nurses Notes Reviewed? yes ? Y Is pt currently ? No Onset: Abrupt Timing: recent history HPI: 22-year-old female approximately 7 weeks comes into emergency room complaints of vaginal bleeding. Patient reports that last night she had some spotting. Patient reports that the bleeding got heavier this morning and she went through 2 pads. She has some mild low back pain but denies any cramping lower abdominal pain. Denies any fever chills. Denies any vomiting. (Freddy Coombs) Past History Travel History Traveled to [place] past 21 day No Medical History Any Pertinent Medical History? 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 No (Freddy Coombs) Review of Systems Review of Systems Constitutional: Reports: no symptoms. EENTM: Reports: no symptoms. Respiratory: Reports: no symptoms. Cardiovascular: Reports: no symptoms. GI: Reports: see HPI. Genitourinary: Reports: see HPI. Musculoskeletal: Reports: no symptoms. Skin: Reports: no symptoms. Neurological/Psychological: Reports: no symptoms. Hematologic/Endocrine: Reports: no symptoms. Immunologic/Allergic: Reports: no symptoms. All Other Systems: Reviewed and Negative (Freddy Coombs) Physical Exam Physical Exam General Appearance: well developed/nourished, alert, awake Head: atraumatic Eyes: Bilateral: normal appearance. Ears, Nose, Throat, Mouth: hearing grossly normal, moist mucous membrane Neck: normal inspection Respiratory: normal breath sounds, no respiratory distress Gastrointestinal: soft, non-tender Back: normal inspection Extremities: normal range of motion Neurologic/Psych: awake, alert, oriented x 3 Skin: intact, normal color Core Measures ACS in differential dx? No Sepsis Present: No Sepsis Focused Exam Completed? No (Freddy Coombs) Progress Differential Diagnosis: intrauterine , ovarian cyst, threatened AB, Miscarriage, placenta previa, Plan of Care: Orders Procedure Date/time Status Add-on Test (ER Only) 04/08 1626 Active URINALYSIS 04/08 1430 Complete HUMAN BETA HCG TITRE 04/08 1430 Complete COMPREHENSIVE METABOLIC PANEL 04/08 1430 Complete CBC WITHOUT DIFFERENTIAL 04/08 1430 Complete Laboratory Tests 04/08/18 1449: Urine Color YEL, Urine Clarity CLDY H, Urine pH 6.0, Ur Specific [place] 1.025, Urine Protein NEG, Urine Ketones NEG, Urine Nitrite NEG, Urine Bilirubin NEG, Urine Urobilinogen 0.2, Ur Leukocyte Esterase NEG, Ur Microscopic SEDIMENT EXAMINED, Urine RBC 25-50 H, Ur Epithelial Cells FEW, Urine Bacteria FEW H, Urine Hemoglobin LARGE H, Urine Glucose >=1000 H 04/08/18 1446: Anion Gap 14, Estimated GFR > 60, BUN/Creatinine Ratio 16.7, Glucose 332 H, Calcium 9.2, Total Bilirubin 2.1 H, AST 16, ALT 32, Alkaline Phosphatase 87, Total Protein 7.0, Albumin 4.1, Globulin 2.9, Albumin/Globulin Ratio 1.4, Beta HCG, Quant 9173.1, CBC w Diff MAN DIFF ORDERED, RBC 4.86, MCV 76.6 L, MCH 25.5 L, MCHC 33.2, RDW 19.7 H, MPV 10.0, Gran % 61.7, Lymphocytes % 29.1, Monocytes % 5.1, Eosinophils % 2.4, Basophils % 1.7, Absolute Granulocytes 6.4, Absolute Lymphocytes 3.0, Absolute Monocytes 0.5, Absolute Eosinophils 0.2, Absolute Basophils 0.2, Platelet Estimate VERIFIED BY SMEAR, Polychromasia 1+, Hypochromic-Microcytic 1+, Poikilocytosis 1+, Anisocytosis 1+, Microcytic Cells 1+, Target Cells 1+ Diagnostic Imaging: Viewed by Me: Ultrasound. Discussed w/RAD: Ultrasound. Radiology Impression: PATIENT: ROBBIN WASHINGTON PRESENT AGE: 22 PATIENT ACCOUNT NO: [id number] : 96 LOCATION: [facility] ORDERING PHYSICIAN: Jaycob HARLEY SERVICE DATE: 04/08/18 EXAM TYPE: US - US TRANSVAG EXAMINATION: US TRANSVAGINAL CLINICAL INFORMATION: Back pain/pelvic pain. Vaginal bleeding. COMPARISON: 03/26/2018 TECHNIQUE: Transabdominal and endovaginal sonographic evaluation of the pelvis. Endovaginal examination performed for improved visualization of the gestational sac. Doppler evaluation with spectral analysis performed. FINDINGS: Anteverted uterus. Intrauterine gestational sac is again noted. A yolk sac is present. There is a crown-rump length measuring 0.76 cm yielding a gestational age by ultrasound of 6 weeks 5 days. There is a normal heart rate at 129 bpm. Adjacent to the gestational sac, there is a subchorionic hemorrhage measuring 0.8 x 0.5 x 0.6 cm. The right ovary measures 3.5 x 2.4 x 1.6 cm. Normal arterial and venous spectral waveforms are present. No adnexal mass. The left ovary measures 3.3 x 2.8 x 2.3 cm. Corpus luteal cyst present measuring 2.5 x 2.2 x 1.8 cm. Normal arterial and venous spectral waveforms are present. No free fluid. IMPRESSION: Single live intrauterine with a gestational age by ultrasound of 6 weeks 5 days. Small subchorionic hemorrhage adjacent to the gestational sac. DICTATED BY: Jerry Uriostegui MD DATE/TIME DICTATED:04/08/181617 WARRANT SERVER:NORAH DATE/TIME TRANSCRIBED:04/08/181617 CONFIDENTIAL, DO NOT COPY WITHOUT APPROPRIATE AUTHORIZATION. <Electronically signed in Other Vendor System> SIGNED BY: Gila BLANCO,Jerry 04/08/18 9854 Initial ED EKG: none Comments: 04/08/2018 6:01:51 PM Patient had type and screen 2 weeks ago and is Rh+. She is hemodynamically stable. Patient was told she needs close follow-up with INSULATION INSPECTOR doctor for repeat ultrasound in 2 days as well as a repeat beta hCG titer. She understands and agrees a plan of care. No acute abdomen on exam. (Cong HARLEY,Freddy) Departure Departure Disposition: HOME OR SELF CARE Condition: Stable Clinical Impression Primary Impression: Vaginal bleeding before 22 weeks gestation Referrals: Ortiz BLANCO,Sami Denton (PCP/Family) Additional Instructions: Follow-up with INSULATION INSPECTOR doctor in 2 days for a repeat ultrasound and repeat beta hCG titer. Return if any other concerns worsening symptoms. Please go over all results of today's visit with your primary care doctor. Contact your primary care doctor to let them know you were here in the emergency room. There may be nonspecific findings which may not be related to your visit today here in the emergency room but may require further evaluation and chronic monitoring by your primary care doctor. If you had a laceration today the chance of foreign body always remains. You should follow-up with your primary care doctor for recheck in 3-5 days for a wound check. If you had an x-ray done there is a chance that a fracture could have been missed on initial read and you should follow-up with your primary care doctor for repeat x-rays if symptoms persist. If your blood pressure was elevated here in the emergency room please have rechecked by [facility] primary care doctor within the next 48. If you were prescribed a narcotic here in the emergency room or any type of controlled substances you're not allowed to drive while taking this medication or operate any type of heavy machinery. Narcotics can make you feel lightheaded dizziness nausea and can cause constipation. You may need to pickle processor a stool softener. Thank you for choosing [facility] emergency room. Please return to the emergency room immediately if you have any other concerns worsening of symptoms. Departure Forms: Customer Survey General Discharge Information (Freddy Coombs) PA/SENIOR EDITOR Co-Sign Statement Statement: ED Attending supervision documentation- x I saw and evaluated the patient. I have also reviewed all the pertinent lab results and diagnostic results. I agree with the findings and the plan of care as documented in the PA's/SENIOR EDITOR's documentation. [] I have reviewed the ED Record and agree with the PA's/SENIOR EDITOR's documentation. [] Additions or exceptions (if any) to the PAs/SENIOR EDITOR's note and plan are summarized below: [] (Cathie BLANCO,Angelito)
[2018-04-09] MEDS ORDERED: ULTRAM50 M1 PO (07:38)
[2018-04-09] MEDS ORDERED: DICLOFENAC POTA50 M1 PO (07:38)
[2018-04-12] MEDS ORDERED: AUGMENTIN 875-1 EACH PO (01:16)
[2018-04-12] MEDS ORDERED: IBUPROFEN800 M1 PO (01:16)
== END 2018-04-08 16:42 ==
LOC: ERH 14:05
PROVIDERS: Physician Assistant Medical
DX: O20.9 Hemorrhage in early pregnancy, unspecified (principal); Z3A.01 Less than 8 weeks gestation of pregnancy
CPT/HCPCS: 76817; 81001

== ENCOUNTER 2018-04-09 03:54 | Emergency (ER) | payer OTHER ==
[~2018-04-09] VITALS: Ht 162.6 cm; Wt 89.4 kg
--- NOTE | 2018-04-09 04:38 | ED GI/GU/ABDOMINAL COMPLAINT ---
History of Present Illness General Chief Complaint: Female Urogenital Problems Stated Complaint: 7 WKS PREG HEAVY VAG BLEEDING WITH CLOTS" Source: patient, family Exam Limitations: no limitations Vital Signs & Intake/Output Vital Signs & Intake/Output Vital Signs Date Time Temp Pulse Resp B/P B/P Pulse O2 O2 Flow FiO2 Mean Ox Delivery Rate 04/09 08 98.6 74 18 112/62 98 Room Air Room Air 04/09 0639 98.4 72 18 107/52 98 Room Air 04/09 0616 100 Room Air 04/09 0540 98.8 04/09 0405 98.8 76 18 125/79 96 Room Air Allergies Coded Allergies: metformin (Intermediate, STOMACH PAINS 04/08/18) Triage Note: TRIAGE: PATIENT TO ER FROM HOME W/ SHARP SEVERE CRAMPING TO LOW ABDOMEN AND BACK SINCE 2:30AM, CURRENTLY 7 WEEKS W/ DUE DATE 11/23/17. REPORTING +HEAVY VAGINAL BLEEDING W/ CLOTS. Triage Nurses Notes Reviewed? yes ? Y Is pt currently ? No HPI: Patient presents for evaluation of vaginal bleeding at about 7 weeks with associated severe lower abdominal and lower back cramping pain. Patient states that she has been using a heavy pad roughly every 2 hours. She was evaluated earlier today in the emergency department but returns because of persistent heavy vaginal bleeding and pain. (Adriane BLANCO,Pedro Luis Lozoya) Reconcile Medications Diclofenac Potassium 50 MG TABLET 1 TAB PO TID PRN PAIN Insulin Aspart, Recombinant (Novolog Flexpen) 100 UNIT/ML INSULN.PEN DIABETES ( Reported) Pnv59/Iron,Carb&Fum/FA/Dss/Dha (Citranatal [place] Capsule) 27 MG IRON-1 MG-50 MG-260 MG CAPSULE 1 CAP PO DAILY VITAMIN (Reported) Tramadol HCl (Ultram) 50 MG TABLET 1-2 TAB PO TID PAIN (eLann BLANCO,Sami Peralta) Past History Travel History Traveled to [place] past 21 day No Medical History Any Pertinent Medical History? 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 No (Adriane BLANCO,Pedro Luis Lozoya) Review of Systems Review of Systems Constitutional: Reports: no symptoms. EENTM: Reports: no symptoms. Respiratory: Reports: no symptoms. Cardiovascular: Reports: no symptoms. GI: Reports: no symptoms. Genitourinary: Reports: see HPI. Musculoskeletal: Reports: no symptoms. Skin: Reports: no symptoms. Neurological/Psychological: Reports: no symptoms. Hematologic/Endocrine: Reports: no symptoms. Immunologic/Allergic: Reports: no symptoms. All Other Systems: Reviewed and Negative (Adriane BLANCO,Pedro Luis Lozoya) Physical Exam Physical Exam Gastrointestinal: SEE BELOW Comments: Gen.: Well-nourished, well-developed, no acute respiratory distress. Head: Normocephalic, atraumatic. Eyes: Normal inspection bilaterally Ears: Normal inspection bilaterally Nose: Normal inspection Throat/mouth : Moist mucosa Neck: Supple, full range of motion, no goiter Heart: Regular rate and rhythm, no murmurs rubs or gallops Lungs: Clear to auscultation bilaterally with normal air entry Chest: Nontender Back: Normal range of motion, nontender Abdomen: Soft, mild to moderate tenderness over the suprapubic region with brief voluntary guarding but no rebound, nondistended, normal bowel sounds Extremities: Normal range of motion grossly, equal radial pulses, no cyanosis clubbing or edema Neurologic: Cranial nerves grossly intact, speech is clear Skin: warm and dry Psychiatric: Calm, cooperative, no apparent delusions or hallucinations Core Measures ACS in differential dx? No Sepsis Present: No Sepsis Focused Exam Completed? No (Adriane BLANCO,Pedro Luis Lozoya) Progress Differential Diagnosis: VAGINAL BLEEDING DURING , MISCARRIAGE Plan of Care: U/S Radiology Impression: PATIENT: ROBBIN WASHINGTON PRESENT AGE: 22 PATIENT ACCOUNT NO: [id number] : 96 LOCATION: [facility] ORDERING PHYSICIAN: Pedro Luis Forrest MD SERVICE DATE: 04/09/18 EXAM TYPE: US - US TRANSVAG EXAMINATION: ULTRASOUND PELVIC, COMPLETE CLINICAL INFORMATION : IVP versus miscarriage. Bleeding and cramping. 7 week . COMPARISON: Ultrasound April 08, 2018. March 26, 2018 TECHNIQUE: Transvaginal: Used to better visualize pelvic structures Transabdominal: Not adequate for visualization Spectral Doppler and color Doppler exam was utilized. LMP: 2017. Gestational age 7 weeks 3 days. JORDAN 11/23/2018. FINDINGS: UTERUS: In the endometrial cavity there is a gestational sac. Within the sac there is a linear structure that is likely the pole. There is no heart beat present and there is no motion. This pole measures approximately 0.56 cm, correlating to a gestational age 6 weeks 0 days, JORDAN 12/03/2018. Lack of cardiac activity for an embryo of this size is consistent with demise, nonviable fetus. ADNEXA: Ovarian vascularity:Doppler demonstrates both arterial and venous vascular flow in the right and left ovary. No evidence of ovarian torsion. Right Ovary: 3.6 x 2.8 x 1.9 cm Left Ovary: 1.8 x 2.2 x 2.3 cm. Dominant follicle measuring 1 cm. Cul-de-sac: No Fluid IMPRESSION: There is no motion or cardiac activity is a pole measuring 0.56 cm. This is consistent with nonviable fetus. DICTATED BY: Edenilson West MD DATE/TIME DICTATED:04/09/18651 BARREL LOADER:NORAH DATE/TIME TRANSCRIBED:651 CONFIDENTIAL, DO NOT COPY WITHOUT APPROPRIATE AUTHORIZATION. < Electronically signed in Other Vendor System> SIGNED BY: Edenilson West MD 701 Initial ED EKG: none Comments: 04/09/2018 7:00:09 AM patient signed out to Dr. Noriega at shift change person. (Adriane BLANCO,Pedro Luis Lozoya) Plan of Care: U/S Diagnostic Imaging: Viewed by Me: Ultrasound. Discussed w/RAD: Ultrasound. Radiology Impression: PATIENT: ROBBIN WASHINGTON PRESENT AGE: 22 PATIENT ACCOUNT NO: [id number] : 96 LOCATION: [facility] ORDERING PHYSICIAN: Pedro Luis Forrest MD SERVICE DATE: 04/09/18 EXAM TYPE: US - US TRANSVAG EXAMINATION: ULTRASOUND PELVIC, COMPLETE CLINICAL INFORMATION : IVP versus miscarriage. Bleeding and cramping. 7 week . COMPARISON: Ultrasound April 08, 2018. March 26, 2018 TECHNIQUE: Transvaginal: Used to better visualize pelvic structures Transabdominal: Not adequate for visualization Spectral Doppler and color Doppler exam was utilized. LMP: 2017. Gestational age 7 weeks 3 days. JORDAN 11/23/2018. FINDINGS: UTERUS: In the endometrial cavity there is a gestational sac. Within the sac there is a linear structure that is likely the pole. There is no heart beat present and there is no motion. This pole measures approximately 0.56 cm, correlating to a gestational age 6 weeks 0 days, JORDAN 12/03/2018. Lack of cardiac activity for an embryo of this size is consistent with demise, nonviable fetus. ADNEXA: Ovarian vascularity:Doppler demonstrates both arterial and venous vascular flow in the right and left ovary. No evidence of ovarian torsion. Right Ovary: 3.6 x 2.8 x 1.9 cm Left Ovary: 1.8 x 2.2 x 2.3 cm. Dominant follicle measuring 1 cm. Cul-de-sac: No Fluid IMPRESSION: There is no motion or cardiac activity is a pole measuring 0.56 cm. This is consistent with nonviable fetus. DICTATED BY: Edenilson West MD DATE/TIME DICTATED:04/09/18651 BARREL LOADER:NORAH DATE/TIME TRANSCRIBED:651 CONFIDENTIAL, DO NOT COPY WITHOUT APPROPRIATE AUTHORIZATION. < Electronically signed in Other Vendor System> SIGNED BY: Edenilson West MD 0702 Comments: Patient discharged by Dr. Forrest. I never took care of this patient. (Leann BLANCO,Sami Peralta) Departure Departure Condition: Stable Clinical Impression Primary Impression: Miscarriage Secondary Impressions: Vaginal bleeding during Referrals: Sami Alcantar MD (PCP/Family) Additional Instructions: Please contact your TRUCK SALES REPRESENTATIVE doctor today and arrange for follow-up appointment on . Unfortunately it appears that you're having a miscarriage, the ultrasound shows no heartbeat. Please take diclofenac as prescribed for pain. If necessary Add tramadol. Return if any concerns or sudden worsening. Departure Forms: Customer Survey General Discharge Information Prescriptions: Current Visit Scripts Diclofenac Potassium 1 TAB PO TID PRN PAIN #30 TAB Tramadol HCl (Ultram) 1-2 TAB PO TID #20 TAB (Adriane BLANCO,Pedro Luis Lozoya) Departure Disposition: HOME OR SELF CARE (Leann BLANCO,Sami Peralta)
--- NOTE | 2018-04-09 07:02 | ULTRASOUND REPORT ---
EXAMINATION: ULTRASOUND PELVIC, COMPLETE CLINICAL INFORMATION: IVP versus miscarriage. Bleeding and cramping. 7 week . COMPARISON: Ultrasound April 08, 2018. March 26, 2018 TECHNIQUE: Transvaginal: Used to better visualize pelvic structures Transabdominal: Not adequate for visualization Spectral Doppler and color Doppler exam was utilized. LMP: 02/16/2018. Gestational age 7 weeks 3 days. JORDAN 11/23/2018. FINDINGS: UTERUS: In the endometrial cavity there is a gestational sac. Within the sac there is a linear structure that is likely the pole. There is no heart beat present and there is no motion. This pole measures approximately 0.56 cm, correlating to a gestational age 6 weeks 0 days, JORDAN 12/03/2018. Lack of cardiac activity for an embryo of this size is consistent with demise, nonviable fetus. ADNEXA: Ovarian vascularity:Doppler demonstrates both arterial and venous vascular flow in the right and left ovary. No evidence of ovarian torsion. Right Ovary: 3.6 x 2.8 x 1.9 cm Left Ovary: 1.8 x 2.2 x 2.3 cm. Dominant follicle measuring 1 cm. Cul-de-sac: No Fluid IMPRESSION: There is no motion or cardiac activity is a pole measuring 0.56 cm. This is consistent with nonviable fetus.
[2018-04-09] MEDS ORDERED: DICLOFENAC POTA50 M1 PO (07:38)
[2018-04-09] MEDS ORDERED: ULTRAM50 M1 PO (07:38)
[2018-04-09 08:02] VITALS: BP 112/62
[2018-04-12] MEDS ORDERED: IBUPROFEN800 M1 PO (01:16)
[2018-04-12] MEDS ORDERED: AUGMENTIN 875-1 EACH PO (01:16)
== END 2018-04-09 08:02 ==
LOC: ERH 03:54
DX: O03.9 Complete or unspecified spontaneous abortion without complication (principal)
CPT/HCPCS: 76817; 96374; J0131

== ENCOUNTER → 2018-04-29 | Day surgery (SDC) | payer OTHER ==
--- NOTE | 2018-04-22 19:15 | History & Physical Pre-Op ---
General Information and HPI History of Present Illness: 22-year-old 2 para 1 at 7 weeks gestation with incomplete presents today for suction D&C. She has a history of type 2 diabetes on insulin. Allergies/Medications Allergies: Coded Allergies: metformin (Intermediate, STOMACH PAINS 04/08/18) Home Med list Amoxicillin/Potassium Clav (Augmentin 875-125 Tablet) 875 MG-125 MG TABLET 1 TAB PO BID ENDOMETRITIS Diclofenac Potassium 50 MG TABLET 1 TAB PO TID PRN PAIN Ibuprofen 800 MG TABLET 1 TAB PO TID PRN PAIN Insulin Aspart, Recombinant (Novolog Flexpen) 100 UNIT/ML INSULN.PEN DIABETES ( Reported) Pnv59/Iron,Carb&Fum/FA/Dss/Dha (Citranatal [place] Capsule) 27 MG IRON-1 MG-50 MG-260 MG CAPSULE 1 CAP PO DAILY VITAMIN (Reported) Tramadol HCl (Ultram) 50 MG TABLET 1-2 TAB PO TID PAIN Past History Medical History Neurological: NONE EENT: NONE Cardiovascular: NONE Respiratory: NONE Gastrointestinal: GERD Hepatic: NONE Renal: NONE Musculoskeletal: NONE Psychiatric: NONE Endocrine: diabetes Blood Disorders: NONE Cancer(s): NONE 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 EENTM: Reports: no symptoms. Cardiovascular: Reports: no symptoms. Respiratory: Reports: no symptoms. GI: Reports: no symptoms. Genitourinary: Reports: no symptoms. Musculoskeletal: Reports: no symptoms. Skin: Reports: no symptoms. Neurological/Psychological: Reports: no symptoms. Hematologic/Endocrine: Reports: no symptoms. Immunologic/Allergic: Reports: no symptoms. All Other Systems: Reviewed and Negative Exam & Diagnostic Data Physical Exam: HEENT: Normocephalic atraumatic Chest: Clear to auscultation bilaterally Cardiovascular: Normal S1-S2 Abdomen: Soft nontender nondistended Pelvic: Deferred OR Extremities: No clubbing cyanosis or edema Neurologic nonfocal Assessment/Plan Assessment/Plan: Incomplete Plan: Suction D&C; RhoGAM if necessary As Ranked By This Provider Problem List: 1. Incomplete
[~2018-04-29] VITALS: Ht 162.6 cm; Wt 89.4 kg
[~2018-04-29] MED LIST changes: +AUGMENTIN 875-1 EACH PO; +DICLOFENAC POTA50 M1 PO; +ULTRAM50 M1 PO
--- NOTE | 2018-05-19 08:19 | Operative Report ---
Operative/Inv Procedure Report Surgery Date: 04/29/18 Name of Procedure: Suction D&C Pre-Operative Diagnosis: Incomplete Post-Operative Diagnosis: Same Estimated Blood Loss: less than 50ml Surgeon/Maintenance Of Way Supervisor: Erick Burns MD Anesthesia: laryngeal mask airway Operative/Procedure Note Note: The patient was brought to the operating room and placed on the OR table in dorsal supine position. She was given adequate anesthesia repositioned in modified dorsal lithotomy. She was prepped and draped in usual sterile fashion. A weighted speculum was inserted into the vagina with the [place] retractor a single-toothed tenaculum was attached to the anterior lip of the cervix. Cervix was injected with 1% lidocaine with epinephrine 2 mL in each quadrant. The cervix was serially dilated to accommodate a #7 curved curet. Suction was activated and products of conception were removed. Sharp curettage revealed no remaining tissue and one final pass of the suction curet also revealed no remaining tissue. At this point the instruments removed and the patient was awakened and sent to recovery in good condition. All needle, sponge, and instrument counts were correct.
== END ==
LOC: STS 04-23 03:36
DX: O03.4 Incomplete spontaneous abortion without complication (principal); E11.9 Type 2 diabetes mellitus without complications; Z79.4 Long term (current) use of insulin; K21.9 Gastro-esophageal reflux disease without esophagitis
CPT/HCPCS: 88305; J2250